=== PATIENT | female | born 1975 ===

== ENCOUNTER 2024-05-21 11:46 | Inpatient (IN) | payer OTHER ==
[~2024-05-21] VITALS: Ht 152.4 cm; Wt 63.0 kg
[2024-05-28] MEDS ORDERED: DESMOPRESSIN ACETATE 4 MCG/ML AMPUL IV NR (07:00)
[2024-05-28] MEDS ORDERED: CEFAZOLIN SODIUM 1,000 MG VIAL ONE ×2 (09:14→17:59)
[2024-05-28] MEDS ORDERED: MORPHINE SULFATE 4 MG/ML VIAL IV PRN (12:45)
[2024-05-28] MEDS ORDERED: RINGERS SOLUTION,LACTATED 1,000 ML IV SCH (12:45)
[2024-05-28] MEDS ORDERED: ONDANSETRON HCL 2 MG/ML VIAL IV PRN (12:45)
[2024-05-28] MEDS ORDERED: CEFAZOLIN SODIUM 1,000 MG VIAL IV ONE (13:00)
[2024-05-28] MEDS ORDERED: MORPHINE SULFATE 4 MG/ML VIAL IV ONE ×2 (13:20→13:50)
[2024-05-28] MEDS ORDERED: MORPHINE SULFATE 2 MG,MORPHINE SULFATE 4 MG IV PRN (14:00)
[2024-05-28 15:49] LABS: HEMATOCRIT 35.4 % (36.0-45.00); HEMOGLOBIN 11.5 g/dL (12.0-15.00); MEAN CELL VOLUME 77.1 fL (80.00-100.00); MEAN CORPUSCULAR HEMOGLOBIN 25.2 pg (27.00-32.0); MEAN CORPUSCULAR HGB CONC 32.6 g/dl (32.0-36.0); PLATELET COUNT 241 K/uL (150-450); RED BLOOD COUNT 4.59 M/uL (4.00-6.00); RED CELL DISTRIBUTION WIDTH 24.1 % (11.5-14.5)
[2024-05-28] MEDS ORDERED: MORPHINE SULFATE 2 MG,MORPHINE SULFATE 4 MG IV SCH (16:00)
[2024-05-28] MEDS ORDERED: CEFAZOLIN SODIUM 1,000 MG VIAL IV SCH (18:00)
[2024-05-29 06:49] LABS: HEMATOCRIT 29.5 % (36.0-45.00); HEMOGLOBIN 9.7 g/dL (12.0-15.00); MEAN CELL VOLUME 78.5 fL (80.00-100.00); MEAN CORPUSCULAR HEMOGLOBIN 25.8 pg (27.00-32.0); MEAN CORPUSCULAR HGB CONC 32.9 g/dl (32.0-36.0); PLATELET COUNT 290 K/uL (150-450); RED BLOOD COUNT 3.76 M/uL (4.00-6.00); RED CELL DISTRIBUTION WIDTH 23.7 % (11.5-14.5)
[2024-05-29] MEDS ORDERED: ACETAMINOPHEN WITH CODEINE 1 UDTAB TABLET PO SCH (08:00)
[2024-05-29] MEDS ORDERED: SIMETHICONE 125 MG CAPSULE PO SCH (09:00)
[2024-05-29] MEDS ORDERED: GABAPENTIN 300 MG CAPSULE PO SCH (09:00)
[2024-05-29] MEDS ORDERED: SOD FERRIC GLUC COMPLX/SUCROSE 62.5 MG in 0.9 % SODIUM CHLORIDE 50 ML IV SCH (10:42)
[2024-05-29] MEDS ORDERED: Cyanocobalamin/Mecobalamin 1 TAB.SL SL SCH (10:42)
[2024-05-29] MEDS ORDERED: DESMOPRESSIN ACETATE 4 MCG/ML AMPUL IV STA (11:00)
[2024-05-29] MEDS ORDERED: ONDANSETRON HCL 2 MG/ML VIAL IV PRN (13:00)
[2024-05-29] MEDS ORDERED: DOCUSATE SODIUM 100MG CAP PO SCH (21:00)
[2024-05-30] MEDS ORDERED: MAXFE CAPLET1 EAC1 PO (06:22)
[2024-05-30] MEDS ORDERED: ACETAMINOPHEN-1 EAC2 PO (06:22)
[2024-05-30] MEDS ORDERED: GABAPENTIN300 MG PO (06:22)
[2024-05-30 07:12] LABS: MEAN CELL VOLUME 77.6 fL (80.00-100.00); MEAN CORPUSCULAR HGB CONC 33.6 g/dl (32.0-36.0); PLATELET COUNT 192 K/uL (150-450); RED BLOOD COUNT 2.81 M/uL (4.00-6.00); RED CELL DISTRIBUTION WIDTH 23.5 % (11.5-14.5)
[2024-05-30 07:17] LABS: HEMATOCRIT 21.8 % (36.0-45.00); MEAN CORPUSCULAR HEMOGLOBIN 25.9 pg (27.00-32.0)
[2024-05-30 07:18] LABS: HEMOGLOBIN 7.3 g/dL (12.0-15.00)
[2024-05-30] MEDS ORDERED: DESMOPRESSIN ACETATE 4 MCG/ML AMPUL IV SCH ×2 (09:00→12:00)
[2024-05-30] MEDS ORDERED: FUROsemide 20 MG/2 ML VIAL IV SCH (17:30)
[2024-05-30] MEDS ORDERED: ACETAMINOPHEN 500 MG GEL..CAP PO PRN (19:00)
[2024-05-31 04:58] LABS: HEMATOCRIT 30.2 % (36.0-45.00); HEMOGLOBIN 10.3 g/dL (12.0-15.00); MEAN CELL VOLUME 80.1 fL (80.00-100.00); MEAN CORPUSCULAR HEMOGLOBIN 27.4 pg (27.00-32.0); MEAN CORPUSCULAR HGB CONC 34.2 g/dl (32.0-36.0); PLATELET COUNT 156 K/uL (150-450); RED BLOOD COUNT 3.77 M/uL (4.00-6.00); RED CELL DISTRIBUTION WIDTH 20.4 % (11.5-14.5)
[2024-05-31 13:16] LABS: HEMATOCRIT 31.4 % (36.0-45.00); HEMOGLOBIN 10.9 g/dL (12.0-15.00); MEAN CELL VOLUME 80.6 fL (80.00-100.00); MEAN CORPUSCULAR HEMOGLOBIN 27.9 pg (27.00-32.0); MEAN CORPUSCULAR HGB CONC 34.6 g/dl (32.0-36.0); PLATELET COUNT 187 K/uL (150-450); RED CELL DISTRIBUTION WIDTH 20.3 % (11.5-14.5)
[2024-05-31 13:35] LABS: INR 1.03; PARTIAL THROMBOPLASTIN TIME 34.7 SECONDS (22.0-34.0); PROTHROMBIN TIME 11.2 SECONDS (9.0-11.5)
[2024-06-01 06:26] LABS: HEMATOCRIT 28.4 % (36.0-45.00); HEMOGLOBIN 9.9 g/dL (12.0-15.00); MEAN CELL VOLUME 80.9 fL (80.00-100.00); MEAN CORPUSCULAR HEMOGLOBIN 28.1 pg (27.00-32.0); MEAN CORPUSCULAR HGB CONC 34.8 g/dl (32.0-36.0); PLATELET COUNT 186 K/uL (150-450); RED BLOOD COUNT 3.52 M/uL (4.00-6.00); RED CELL DISTRIBUTION WIDTH 20.8 % (11.5-14.5)
[2024-06-01 10:23] LABS: HEMATOCRIT 31.1 % (36.0-45.00); HEMOGLOBIN 10.6 g/dL (12.0-15.00); MEAN CELL VOLUME 82.3 fL (80.00-100.00); MEAN CORPUSCULAR HEMOGLOBIN 27.9 pg (27.00-32.0); PLATELET COUNT 206 K/uL (150-450); RED BLOOD COUNT 3.78 M/uL (4.00-6.00); RED CELL DISTRIBUTION WIDTH 20.8 % (11.5-14.5)
[2024-06-01] MEDS ORDERED: DESMOPRESSIN ACETATE 4 MCG/ML AMPUL IV SCH (12:00)
== END 2024-06-01 11:19 | disposition home or self-care (01) | DRG 742 ==
LOC: OB/GYN 05-28 06:52 → O/R 05-28 06:52 → OB/GYN 05-28 11:30
PROVIDERS: Internal Medicine Geriatric Medicine; ADMIT Obstetrics & Gynecology Gynecology; ATTEND Obstetrics & Gynecology Gynecology
PROC: 0UT70ZZ Resection of Bilateral Fallopian Tubes, Open Approach (ICD-10-PCS; 2024-05-28)
PROC: 0USG0ZZ Reposition Vagina, Open Approach (ICD-10-PCS; 2024-05-28)
PROC: 0UT90ZZ Resection of Uterus, Open Approach (ICD-10-PCS; principal; 2024-05-28 11:30)
PROC: 30233N1 Transfusion of Nonautologous Red Blood Cells into Peripheral Vein, Percutaneous Approach (ICD-10-PCS; 2024-05-30)
DX: D25.1 Intramural leiomyoma of uterus (principal); D62 Acute posthemorrhagic anemia; D68.00 Von Willebrand disease, unspecified; N92.0 Excessive and frequent menstruation with regular cycle; Z20.822 Contact with and (suspected) exposure to COVID-19